=== PATIENT | male | born 2005 | race Caucasian/White ===

== ENCOUNTER 2024-01-02 02:39 | Outpatient (RCR) | payer BC, SELFPAY ==
[2024-01-02] MEDS: Normal Saline Flush 10 ML SYR IVP (07:14)
[2024-01-02 07:47] LABS: Abs Immature Grans 0.01 10^3/uL (0.0-0.06); Absolute Basophil Count 0.12 10^3/uL (0.0-0.2); Absolute Eosinophil Count 0.12 10^3/uL (0.0-0.7); Absolute Lymphocyte Count 1.61 10^3/uL (1.2-3.4); Absolute Monocyte Count 0.41 10^3/uL (0.1-0.8); Absolute Neutrophil Count 2.95 10^3/uL (1.2-6.7); Basophils % 2.3 %; ESR 19 mm/hr (0-15); Eosinophils % 2.3 %; HGB 11.6 g/dL (13.5-17.5); Immature Grans % 0.2 %; Lymphocytes % 30.8 %; MCH 23.5 pg (27.0-33.0); MCHC 30.5 % (32.0-36.0); MCV 77 fL (80-95); Monocytes % 7.9 %; Neutrophils % 56.5 %; Platelet Count 339 10^3/uL (130-400); RBC 4.93 10^6/uL (4.36-5.78); RDW 18.5 % (11.8-14.1); RDW-SD 50.9 fL; WBC 5.22 10^3/uL (4.4-10.8)
[2024-01-02 08:09] LABS: ALT 16 U/L (16-63); AST 13 U/L (15-37); Albumin 3.6 g/dL (3.4-5.0); Alkaline Phosphatase 103 U/L (46-116); Anion Gap 10.5 mmol/L (3-11); BUN 8 mg/dL (7-18); Bilirubin, Total 0.18 mg/dL (0.2-1.0); CO2 23.5 mmol/L (21.0-32.0); Calcium 9.3 mg/dL (8.5-10.1); Chloride 107 mmol/L (98-107); Glucose 108 mg/dL (74-106); LDH 129 U/L (85-227); Sodium 141 mmol/L (136-145)
== END 2024-01-05 23:59 | disposition home or self-care (01) ==
LOC: INF 02:39
PROVIDERS: Visit Provider Internal Medicine Hematology & Oncology
DX: C81.18 Nodular sclerosis Hodgkin lymphoma, lymph nodes of multiple sites (principal)
CPT/HCPCS: 36591; 80053; 85652; 83615; 84550; 85025

== ENCOUNTER 2024-01-30 02:09 | Outpatient (RCR) | payer BC, SELFPAY ==
[2024-01-16] MEDS: Normal Saline Flush 10 ML SYR IVP (09:17)
[2024-01-16 09:42] LABS: Abs Immature Grans 0.02 10^3/uL (0.0-0.06); Absolute Basophil Count 0.06 10^3/uL (0.0-0.2); Absolute Eosinophil Count 0.33 10^3/uL (0.0-0.7); Absolute Lymphocyte Count 1.08 10^3/uL (1.2-3.4); Absolute Monocyte Count 0.55 10^3/uL (0.1-0.8); Absolute Neutrophil Count 2.97 10^3/uL (1.2-6.7); Basophils % 1.2 %; Eosinophils % 6.6 %; HCT 38.6 % (40.0-50.0); HGB 12.1 g/dL (13.5-17.5); Immature Grans % 0.4 %; Lymphocytes % 21.6 %; MCH 24.3 pg (27.0-33.0); MCHC 31.3 % (32.0-36.0); MCV 78 fL (80-95); Neutrophils % 59.2 %; Platelet Count 205 10^3/uL (130-400); RBC 4.98 10^6/uL (4.36-5.78); RDW 18.6 % (11.8-14.1); RDW-SD 51.1 fL; WBC 5.01 10^3/uL (4.4-10.8)
[2024-01-16 09:45] LABS: ESR 4 mm/hr (0-15)
[2024-01-16 09:57] LABS: ALT 19 U/L (16-63); AST 16 U/L (15-37); Albumin 3.7 g/dL (3.4-5.0); Alkaline Phosphatase 89 U/L (46-116); Anion Gap 9.6 mmol/L (3-11); BUN 9 mg/dL (7-18); Bilirubin, Total 0.24 mg/dL (0.2-1.0); CO2 25.4 mmol/L (21.0-32.0); Calcium 9.3 mg/dL (8.5-10.1); Chloride 105 mmol/L (98-107); Glucose 98 mg/dL (74-106); LDH 132 U/L (85-227); Potassium 3.9 mmol/L (3.5-5.1); Sodium 140 mmol/L (136-145); Total Protein 7.6 g/dL (6.4-8.2); Uric Acid 7.1 mg/dL (3.5-7.2)
[2024-01-30] MEDS: Normal Saline Flush 10 ML SYR IVP (09:07)
[2024-01-30 09:19] LABS: Abs Immature Grans 0.01 10^3/uL (0.0-0.06); Absolute Basophil Count 0.09 10^3/uL (0.0-0.2); Absolute Eosinophil Count 0.25 10^3/uL (0.0-0.7); Absolute Monocyte Count 0.56 10^3/uL (0.1-0.8); Absolute Neutrophil Count 2.65 10^3/uL (1.2-6.7); Basophils % 1.7 %; Eosinophils % 4.8 %; HGB 13.4 g/dL (13.5-17.5); Immature Grans % 0.2 %; MCH 24.8 pg (27.0-33.0); MCHC 31.9 % (32.0-36.0); MCV 78 fL (80-95); MPV 8.8 fL (8.0-11.0); Monocytes % 10.9 %; Neutrophils % 51.4 %; Platelet Count 288 10^3/uL (130-400); RBC 5.41 10^6/uL (4.36-5.78); RDW 18.6 % (11.8-14.1); RDW-SD 51.7 fL; WBC 5.16 10^3/uL (4.4-10.8)
[2024-01-30 09:27] LABS: ESR 5 mm/hr (0-15)
[2024-01-30 09:35] LABS: ALT 30 U/L (16-63); AST 19 U/L (15-37); Albumin 3.8 g/dL (3.4-5.0); Alkaline Phosphatase 91 U/L (46-116); Anion Gap 6.2 mmol/L (3-11); BUN 15 mg/dL (7-18); Bilirubin, Total 0.23 mg/dL (0.2-1.0); CO2 26.8 mmol/L (21.0-32.0); CREATININE 0.9 mg/dL (0.70-1.30); Calcium 9.4 mg/dL (8.5-10.1); Chloride 102 mmol/L (98-107); Estimated GFR 125.39 (mL/min/1.73m2); Glucose 99 mg/dL (74-106); LDH 153 U/L (85-227); Potassium 4.4 mmol/L (3.5-5.1); Sodium 135 mmol/L (136-145); Total Protein 8.1 g/dL (6.4-8.2); Uric Acid 7.3 mg/dL (3.5-7.2)
== END 2024-02-04 23:59 | disposition home or self-care (01) ==
LOC: INF 02:09
PROVIDERS: Nurse Practitioner Adult Health; Visit Provider Internal Medicine Hematology & Oncology
DX: C81.18 Nodular sclerosis Hodgkin lymphoma, lymph nodes of multiple sites (principal)
CPT/HCPCS: 36591; 80053; 85652; 83615; 84550; 85025

== ENCOUNTER 2024-02-27 03:11 | Outpatient (RCR) | payer BC, SELFPAY ==
[2024-02-13] MEDS: Normal Saline Flush 10 ML SYR IVP (08:40)
[2024-02-13 08:46] LABS: Abs Immature Grans 0.01 10^3/uL (0.0-0.06); Absolute Basophil Count 0.06 10^3/uL (0.0-0.2); Absolute Eosinophil Count 0.15 10^3/uL (0.0-0.7); Absolute Lymphocyte Count 1.35 10^3/uL (1.2-3.4); Absolute Monocyte Count 0.46 10^3/uL (0.1-0.8); Basophils % 1.4 %; Eosinophils % 3.5 %; HCT 40.5 % (40.0-50.0); Immature Grans % 0.2 %; Lymphocytes % 31.2 %; MCH 25.5 pg (27.0-33.0); MCHC 32.1 % (32.0-36.0); MCV 79 fL (80-95); MPV 8.6 fL (8.0-11.0); Monocytes % 10.6 %; Neutrophils % 53.1 %; Platelet Count 228 10^3/uL (130-400); RDW 18.1 % (11.8-14.1); WBC 4.33 10^3/uL (4.4-10.8)
[2024-02-13 08:49] LABS: ESR 5 mm/hr (0-15)
[2024-02-13 09:06] LABS: ALT 28 U/L (16-63); AST 17 U/L (15-37); Albumin 3.6 g/dL (3.4-5.0); Alkaline Phosphatase 84 U/L (46-116); Anion Gap 8.1 mmol/L (3-11); BUN 14 mg/dL (7-18); Bilirubin, Total 0.32 mg/dL (0.2-1.0); CO2 27.9 mmol/L (21.0-32.0); CREATININE 1.1 mg/dL (0.70-1.30); Calcium 9.3 mg/dL (8.5-10.1); Chloride 105 mmol/L (98-107); Estimated GFR 98.56 (mL/min/1.73m2); Glucose 101 mg/dL (74-106); LDH 139 U/L (85-227); Potassium 4.6 mmol/L (3.5-5.1); Sodium 141 mmol/L (136-145); Total Protein 7.7 g/dL (6.4-8.2); Uric Acid 7.3 mg/dL (3.5-7.2)
[2024-02-27] MEDS: Normal Saline Flush 10 ML SYR IVP (09:13)
[2024-02-27 09:30] LABS: Abs Immature Grans 0.01 10^3/uL (0.0-0.06); Absolute Basophil Count 0.05 10^3/uL (0.0-0.2); Absolute Eosinophil Count 0.15 10^3/uL (0.0-0.7); Absolute Lymphocyte Count 1.56 10^3/uL (1.2-3.4); Absolute Monocyte Count 0.51 10^3/uL (0.1-0.8); Absolute Neutrophil Count 2.66 10^3/uL (1.2-6.7); HCT 40.7 % (40.0-50.0); HGB 13.2 g/dL (13.5-17.5); Immature Grans % 0.2 %; Lymphocytes % 31.6 %; MCH 25.8 pg (27.0-33.0); MCHC 32.4 % (32.0-36.0); MCV 80 fL (80-95); MPV 9.2 fL (8.0-11.0); Monocytes % 10.3 %; Neutrophils % 53.9 %; Platelet Count 272 10^3/uL (130-400); RBC 5.12 10^6/uL (4.36-5.78); RDW 17.1 % (11.8-14.1); RDW-SD 49.6 fL; WBC 4.94 10^3/uL (4.4-10.8)
[2024-02-27 09:31] LABS: ESR 6 mm/hr (0-15)
[2024-02-27 09:53] LABS: ALT 29 U/L (16-63); AST 17 U/L (15-37); Albumin 3.7 g/dL (3.4-5.0); Alkaline Phosphatase 80 U/L (46-116); Anion Gap 9.1 mmol/L (3-11); BUN 23 mg/dL (7-18); Bilirubin, Total 0.28 mg/dL (0.2-1.0); CO2 24.9 mmol/L (21.0-32.0); CREATININE 1.1 mg/dL (0.70-1.30); Calcium 9.2 mg/dL (8.5-10.1); Chloride 108 mmol/L (98-107); Estimated GFR 97.95 (mL/min/1.73m2); Glucose 77 mg/dL (74-106); LDH 146 U/L (85-227); Potassium 4.5 mmol/L (3.5-5.1); Sodium 142 mmol/L (136-145); Total Protein 7.8 g/dL (6.4-8.2); Uric Acid 6.9 mg/dL (3.5-7.2)
[2024-02-27 11:31] LABS: TSH 1.41 uIU/mL (0.36-3.74)
== END 2024-03-06 23:59 | disposition home or self-care (01) ==
LOC: INF 03:11
PROVIDERS: Nurse Practitioner Adult Health; Visit Provider Internal Medicine Hematology & Oncology
DX: C81.18 Nodular sclerosis Hodgkin lymphoma, lymph nodes of multiple sites (principal); Z79.899 Other long term (current) drug therapy; Z45.2 Encounter for adjustment and management of vascular access device
CPT/HCPCS: 36591; 80053; 85652; 83615; 84439; 84443; 84550; 85025

== ENCOUNTER 2024-03-26 02:03 | Outpatient (RCR) | payer BC, SELFPAY ==
[2024-03-12] MEDS: Normal Saline Flush 10 ML SYR IVP (09:44)
[2024-03-12 09:57] LABS: Abs Immature Grans 0.01 10^3/uL (0.0-0.06); Absolute Basophil Count 0.04 10^3/uL (0.0-0.2); Absolute Eosinophil Count 0.12 10^3/uL (0.0-0.7); Absolute Lymphocyte Count 1.53 10^3/uL (1.2-3.4); Absolute Monocyte Count 0.52 10^3/uL (0.1-0.8); Absolute Neutrophil Count 3.32 10^3/uL (1.2-6.7); Basophils % 0.7 %; Eosinophils % 2.2 %; HCT 39.4 % (40.0-50.0); HGB 13.1 g/dL (13.5-17.5); Immature Grans % 0.2 %; Lymphocytes % 27.6 %; MCH 26.6 pg (27.0-33.0); MCHC 33.2 % (32.0-36.0); MCV 80 fL (80-95); MPV 9.3 fL (8.0-11.0); Monocytes % 9.4 %; Neutrophils % 59.9 %; Platelet Count 258 10^3/uL (130-400); RBC 4.92 10^6/uL (4.36-5.78); RDW 16.6 % (11.8-14.1); RDW-SD 48.1 fL; WBC 5.54 10^3/uL (4.4-10.8)
[2024-03-12 10:00] LABS: ESR 5 mm/hr (0-15)
[2024-03-12 10:17] LABS: ALT 25 U/L (16-63); AST 15 U/L (15-37); Albumin 3.7 g/dL (3.4-5.0); Alkaline Phosphatase 93 U/L (46-116); BUN 17 mg/dL (7-18); Bilirubin, Total 0.24 mg/dL (0.2-1.0); CO2 24.9 mmol/L (21.0-32.0); CREATININE 1.1 mg/dL (0.70-1.30); Calcium 9.3 mg/dL (8.5-10.1); Estimated GFR 97.95 (mL/min/1.73m2); Glucose 98 mg/dL (74-106); LDH 150 U/L (85-227); Total Protein 7.7 g/dL (6.4-8.2); Uric Acid 6.8 mg/dL (3.5-7.2)
[2024-03-12 10:24] LABS: FREE T4 0.88 ng/dL (0.76-1.46); TSH 1.07 uIU/mL (0.36-3.74)
[2024-03-12 10:33] LABS: Anion Gap 10.1 mmol/L (3-11); Chloride 106 mmol/L (98-107); Potassium 4.2 mmol/L (3.5-5.1); Sodium 141 mmol/L (136-145)
[2024-03-26] MEDS: Normal Saline Flush 10 ML SYR IVP (08:00)
[2024-03-26 08:25] LABS: Abs Immature Grans 0.01 10^3/uL (0.0-0.06); Absolute Basophil Count 0.04 10^3/uL (0.0-0.2); Absolute Eosinophil Count 0.14 10^3/uL (0.0-0.7); Absolute Lymphocyte Count 1.38 10^3/uL (1.2-3.4); Absolute Monocyte Count 0.41 10^3/uL (0.1-0.8); Absolute Neutrophil Count 2.16 10^3/uL (1.2-6.7); Eosinophils % 3.4 %; HCT 39.1 % (40.0-50.0); HGB 12.7 g/dL (13.5-17.5); Immature Grans % 0.2 %; Lymphocytes % 33.3 %; MCHC 32.5 % (32.0-36.0); MCV 83 fL (80-95); Monocytes % 9.9 %; Neutrophils % 52.2 %; Platelet Count 242 10^3/uL (130-400); RBC 4.71 10^6/uL (4.36-5.78); RDW 16.2 % (11.8-14.1); RDW-SD 48.7 fL; WBC 4.14 10^3/uL (4.4-10.8)
[2024-03-26 08:26] LABS: ESR 3 mm/hr (0-15)
[2024-03-26 08:44] LABS: ALT 35 U/L (16-63); AST 17 U/L (15-37); Albumin 3.6 g/dL (3.4-5.0); Alkaline Phosphatase 82 U/L (46-116); Anion Gap 7.8 mmol/L (3-11); BUN 21 mg/dL (7-18); Bilirubin, Total 0.32 mg/dL (0.2-1.0); CO2 25.2 mmol/L (21.0-32.0); CREATININE 1.2 mg/dL (0.70-1.30); Calcium 8.8 mg/dL (8.5-10.1); Chloride 107 mmol/L (98-107); Estimated GFR 88.24 (mL/min/1.73m2); Glucose 108 mg/dL (74-106); LDH 151 U/L (85-227); Potassium 4.1 mmol/L (3.5-5.1); Sodium 140 mmol/L (136-145); Total Protein 7.4 g/dL (6.4-8.2); Uric Acid 6.8 mg/dL (3.5-7.2)
== END 2024-04-05 23:59 | disposition home or self-care (01) ==
LOC: INF 02:03
PROVIDERS: Nurse Practitioner Adult Health; Visit Provider Internal Medicine Hematology & Oncology
DX: C81.18 Nodular sclerosis Hodgkin lymphoma, lymph nodes of multiple sites (principal); Z79.899 Other long term (current) drug therapy; Z45.2 Encounter for adjustment and management of vascular access device
CPT/HCPCS: 36591; 80053; 85652; 83615; 84439; 84443; 84550; 85025

== ENCOUNTER 2024-04-23 03:57 | Outpatient (RCR) | payer BC, SELFPAY ==
[2024-04-09 07:49] LABS: Abs Immature Grans 0.01 10^3/uL (0.0-0.06); Absolute Basophil Count 0.04 10^3/uL (0.0-0.2); Absolute Eosinophil Count 0.14 10^3/uL (0.0-0.7); Absolute Monocyte Count 0.57 10^3/uL (0.1-0.8); Absolute Neutrophil Count 2.61 10^3/uL (1.2-6.7); Basophils % 0.9 %; HCT 39.6 % (40.0-50.0); Immature Grans % 0.2 %; Lymphocytes % 27.8 %; MCH 27.3 pg (27.0-33.0); MCHC 32.8 % (32.0-36.0); MCV 83 fL (80-95); MPV 8.9 fL (8.0-11.0); Monocytes % 12.2 %; Neutrophils % 55.9 %; Platelet Count 270 10^3/uL (130-400); RBC 4.76 10^6/uL (4.36-5.78); RDW 15.7 % (11.8-14.1); RDW-SD 47.7 fL; WBC 4.67 10^3/uL (4.4-10.8)
[2024-04-09 07:57] LABS: ESR 5 mm/hr (0-15)
[2024-04-09 08:12] LABS: ALT 32 U/L (16-63); AST 18 U/L (15-37); Albumin 3.7 g/dL (3.4-5.0); Alkaline Phosphatase 81 U/L (46-116); Anion Gap 8.8 mmol/L (3-11); BUN 16 mg/dL (7-18); Bilirubin, Total 0.32 mg/dL (0.2-1.0); CO2 27.2 mmol/L (21.0-32.0); Calcium 9.2 mg/dL (8.5-10.1); Chloride 106 mmol/L (98-107); Estimated GFR 109.81 (mL/min/1.73m2); Glucose 99 mg/dL (74-106); LDH 146 U/L (85-227); Potassium 4.4 mmol/L (3.5-5.1); Sodium 142 mmol/L (136-145); Total Protein 7.7 g/dL (6.4-8.2); Uric Acid 6.4 mg/dL (3.5-7.2)
[2024-04-09] MEDS: Normal Saline Flush 10 ML SYR IVP (08:20)
[2024-04-09 08:21] LABS: FREE T4 0.85 ng/dL (0.76-1.46); TSH 1.33 uIU/mL (0.36-3.74)
[2024-04-23 09:38] LABS: Abs Immature Grans 0.01 10^3/uL (0.0-0.06); Absolute Basophil Count 0.05 10^3/uL (0.0-0.2); Absolute Eosinophil Count 0.13 10^3/uL (0.0-0.7); Absolute Lymphocyte Count 1.36 10^3/uL (1.2-3.4); Absolute Monocyte Count 0.47 10^3/uL (0.1-0.8); Absolute Neutrophil Count 2.56 10^3/uL (1.2-6.7); Basophils % 1.1 %; Eosinophils % 2.8 %; HCT 40.8 % (40.0-50.0); HGB 13.6 g/dL (13.5-17.5); Immature Grans % 0.2 %; Lymphocytes % 29.7 %; MCHC 33.3 % (32.0-36.0); MCV 84 fL (80-95); Monocytes % 10.3 %; Neutrophils % 55.9 %; Platelet Count 259 10^3/uL (130-400); RBC 4.86 10^6/uL (4.36-5.78); RDW-SD 45.7 fL; WBC 4.58 10^3/uL (4.4-10.8)
[2024-04-23 09:39] LABS: ESR 3 mm/hr (0-15)
[2024-04-23 09:57] LABS: ALT 28 U/L (16-63); AST 19 U/L (15-37); Albumin 3.5 g/dL (3.4-5.0); Alkaline Phosphatase 85 U/L (46-116); Anion Gap 8.9 mmol/L (3-11); BUN 18 mg/dL (7-18); Bilirubin, Total 0.19 mg/dL (0.2-1.0); CO2 25.1 mmol/L (21.0-32.0); Chloride 109 mmol/L (98-107); Estimated GFR 109.81 (mL/min/1.73m2); Glucose 122 mg/dL (74-106); LDH 162 U/L (85-227); Potassium 3.8 mmol/L (3.5-5.1); Sodium 143 mmol/L (136-145); Uric Acid 6.1 mg/dL (3.5-7.2)
[2024-04-23 10:08] LABS: FREE T4 0.81 ng/dL (0.76-1.46); TSH 1.56 uIU/mL (0.36-3.74)
== END 2024-05-06 23:59 | disposition home or self-care (01) ==
LOC: INF 03:57
PROVIDERS: Nurse Practitioner Adult Health; Visit Provider Internal Medicine Hematology & Oncology
DX: C81.18 Nodular sclerosis Hodgkin lymphoma, lymph nodes of multiple sites (principal); Z45.2 Encounter for adjustment and management of vascular access device
CPT/HCPCS: 36591; 80053; 85652; 83615; 84439; 84443; 84550; 85025

== ENCOUNTER 2024-05-21 02:41 | Outpatient (RCR) | payer BC, SELFPAY ==
[2024-05-08] MEDS: Normal Saline Flush 10 ML SYR IVP (08:36)
[2024-05-08 08:47] LABS: Abs Immature Grans 0.01 10^3/uL (0.0-0.06); Absolute Basophil Count 0.04 10^3/uL (0.0-0.2); Absolute Eosinophil Count 0.14 10^3/uL (0.0-0.7); Absolute Lymphocyte Count 1.42 10^3/uL (1.2-3.4); Absolute Neutrophil Count 2.36 10^3/uL (1.2-6.7); Basophils % 0.9 %; Eosinophils % 3.1 %; HCT 40.2 % (40.0-50.0); HGB 13.7 g/dL (13.5-17.5); Immature Grans % 0.2 %; Lymphocytes % 31.8 %; MCH 28.2 pg (27.0-33.0); MCHC 34.1 % (32.0-36.0); MCV 83 fL (80-95); MPV 8.9 fL (8.0-11.0); Monocytes % 11.2 %; Neutrophils % 52.8 %; Platelet Count 245 10^3/uL (130-400); RBC 4.86 10^6/uL (4.36-5.78); RDW 14.6 % (11.8-14.1); RDW-SD 43.2 fL; WBC 4.47 10^3/uL (4.4-10.8)
[2024-05-08 08:49] LABS: ESR 3 mm/hr (0-15)
[2024-05-08 09:07] LABS: ALT 37 U/L (16-63); AST 21 U/L (15-37); Albumin 3.8 g/dL (3.4-5.0); Alkaline Phosphatase 76 U/L (46-116); Anion Gap 9.8 mmol/L (3-11); BUN 18 mg/dL (7-18); Bilirubin, Total 0.25 mg/dL (0.2-1.0); CO2 24.2 mmol/L (21.0-32.0); CREATININE 1.2 mg/dL (0.70-1.30); Calcium 9.1 mg/dL (8.5-10.1); Chloride 107 mmol/L (98-107); Estimated GFR 88.24 (mL/min/1.73m2); Glucose 103 mg/dL (74-106); LDH 145 U/L (85-227); Potassium 4.1 mmol/L (3.5-5.1); Sodium 141 mmol/L (136-145); Total Protein 7.4 g/dL (6.4-8.2); Uric Acid 6.9 mg/dL (3.5-7.2)
[2024-05-08 09:51] LABS: TSH 2.89 uIU/mL (0.36-3.74)
== END 2024-06-06 23:59 | disposition home or self-care (01) ==
LOC: INF 02:41
PROVIDERS: Nurse Practitioner Adult Health; Visit Provider Internal Medicine Hematology & Oncology
DX: C81.18 Nodular sclerosis Hodgkin lymphoma, lymph nodes of multiple sites (principal); Z79.899 Other long term (current) drug therapy
CPT/HCPCS: 36591; 80053; 85652; 83615; 84439; 84443; 84550; 85025

== ENCOUNTER 2024-06-25 02:37 | Outpatient (CLI) | payer BC, SELFPAY ==
[2024-06-25 09:30] LABS: Abs Immature Grans 0.01 10^3/uL (0.0-0.06); Absolute Basophil Count 0.06 10^3/uL (0.0-0.2); Absolute Eosinophil Count 0.52 10^3/uL (0.0-0.7); Absolute Lymphocyte Count 1.44 10^3/uL (1.2-3.4); Absolute Monocyte Count 0.51 10^3/uL (0.1-0.8); Absolute Neutrophil Count 3.57 10^3/uL (1.2-6.7); Eosinophils % 8.5 %; HCT 43.8 % (40.0-50.0); HGB 14.8 g/dL (13.5-17.5); Immature Grans % 0.2 %; Lymphocytes % 23.6 %; MCH 28.3 pg (27.0-33.0); MCHC 33.8 % (32.0-36.0); MCV 84 fL (80-95); Monocytes % 8.3 %; Neutrophils % 58.4 %; Platelet Count 262 10^3/uL (130-400); RBC 5.23 10^6/uL (4.36-5.78); RDW 12.8 % (11.8-14.1); RDW-SD 39.4 fL; WBC 6.11 10^3/uL (4.4-10.8)
[2024-06-25 09:40] LABS: ESR < 1 mm/hr (0-15)
[2024-06-25 09:55] LABS: ALT 43 U/L (16-63); AST 28 U/L (15-37); Alkaline Phosphatase 82 U/L (46-116); Anion Gap 3.4 mmol/L (3-11); BUN 26 mg/dL (7-18); Bilirubin, Total 0.51 mg/dL (0.2-1.0); CO2 30.6 mmol/L (21.0-32.0); CREATININE 1.2 mg/dL (0.70-1.30); Calcium 9.4 mg/dL (8.5-10.1); Chloride 107 mmol/L (98-107); Estimated GFR 88.24 (mL/min/1.73m2); FREE T4 0.83 ng/dL (0.76-1.46); Glucose 106 mg/dL (74-106); Potassium 4.7 mmol/L (3.5-5.1); Sodium 141 mmol/L (136-145); TSH 4.43 uIU/mL (0.36-3.74); Total Protein 7.9 g/dL (6.4-8.2); Uric Acid 7.2 mg/dL (3.5-7.2)
== END 2024-06-25 02:38 | disposition home or self-care (01) ==
LOC: LBO 02:37
PROVIDERS: Visit Provider Internal Medicine Hematology & Oncology
DX: C81.18 Nodular sclerosis Hodgkin lymphoma, lymph nodes of multiple sites (principal); Z79.899 Other long term (current) drug therapy
CPT/HCPCS: 36415; 80053; 85652; 84439; 84443; 84550; 85025